=== PATIENT | female | born 1965 | race Caucasian/White ===

== ENCOUNTER 2021-04-06 17:44 | Emergency (ER) | payer OTHER, SELFPAY ==
--- NOTE | ~2021-04-06 | CT_ITS ---
EXAMINATION: CT ABDOMEN AND PELVIS WITH CONTRAST CLINICAL INFORMATION: Left lower quadrant abdominal pain. Tenderness to palpation. COMPARISON: None TECHNIQUE: Multidetector volumetric images were obtained from the superior aspect of the liver through the pubic symphysis following administration 85 mL of Omnipaque 350 intravenous contrast. Sagittal and coronal reformatted images were obtained on the technologist's workstation. Oral contrast: No This CT examination was performed using dose optimization techniques as appropriate, variously including the following: *Automated exposure control *Adjustment of mA and/or kV according to patient size (this includes techniques or standardized protocols for targeted exams where dose is matched to indication/reason for exam; i.e. extremities or head) *Use of iterative reconstruction technique DLP: 770 mGy-cm FINDINGS: LUNG BASES: The visualized lung bases are unremarkable. LIVER, GALLBLADDER, AND BILIARY TREE: The liver is normal in size, shape, and attenuation. No focal hepatic lesion or biliary ductal dilatation is present. The gallbladder is unremarkable with no evidence of radiopaque gallstones, gallbladder wall thickening, or obvious pericholecystic inflammatory changes. PANCREAS: Unremarkable. SPLEEN: Unremarkable. ADRENAL GLANDS: Unremarkable. KIDNEYS AND URETERS: The kidneys are normal in size, shape, and attenuation. No hydronephrosis, hydroureter, or calculi seen. No perinephric stranding. BLADDER: Unremarkable. GASTROINTESTINAL TRACT: The small and large bowel are unremarkable. The appendix is unremarkable. ABDOMINAL WALL: No significant hernia is appreciated. LYMPH NODES: Normal. VASCULAR: Unremarkable. PELVIC VISCERA: Unremarkable. OSSEOUS STRUCTURES: There is multilevel moderate degenerative spondylosis of lumbar spine. CT/CT abdomen pelvis w con IMPRESSION: No acute abnormality CT scan abdomen pelvis.
[2021-04-06 18:36] VITALS: BP 157/87; PULSE 73; RESP 16; TEMP 36.2; O2SAT 96; BMI 33.0
[2021-04-06 19:26] LABS: Glucose Urine UA NEG (NEG); Leukocyte Esterase Urine NEG (NEG); Nitrite Urine NEG (NEG); Urine Blood TRACE (NEG); Urine Ketones NEG (NEG); Urine Protein NEG (NEG-TRACE)
[2021-04-06 19:28] LABS: Appearance Urine CLEAR; Color Urine YELLOW
[2021-04-06 19:35] LABS: RBC Urine 0-2 /HPF (0); WBC Urine 0 /HPF (0-4)
[2021-04-06 19:59] VITALS: BP 164/87; PULSE 64; RESP 16; TEMP 36.6; O2SAT 99
[2021-04-06 20:02] LABS: MANUAL DIFF FLAG NO
[2021-04-06 20:03] LABS: Basophils Absolute Auto 0.1 X10*3/uL (0.0-0.2); Basophils Percent Auto 1.1 % (0-2); Eosinophils Absolute Auto 0.2 X10*3/uL (0.0-0.4); Eosinophils Percent Auto 2.8 % (0-4); Hematocrit 44.9 % (37-47); Hemoglobin 15.1 g/dl (12.0-16.0); Imm Gran Abs Auto 0.01 X10*3/uL (0.00-0.03); Imm Gran Pct Auto 0.1 % (0.0-0.4); Lymphocytes Absolute Auto 2.9 X10*3/uL (1.2-4.9); Lymphocytes Percent Auto 40.6 % (20-40); Mean Corpuscular HGB Conc 33.6 g/dl (31.0-35.0); Mean Corpuscular Hemoglobin 30.3 pg (27.0-33.0); Mean Platelet Volume 10.8 fL (9.4-12.3); Monocytes Absolute Auto 0.7 X10*3/uL (0.1-1.2); Monocytes Percent Auto 9.3 % (2-11); Neutrophils Absolute Auto 3.3 X10*3/uL (2.0-8.3); Neutrophils Percent Auto 46.1 % (45-73); Platelet Count 218 X10*3/uL (160-400); Red Blood Count 4.99 X10*6/uL (4.20-5.50); Red Cell Distribution Width 12.9 % (11.0-16.0); White Blood Count 7.2 X10*3/uL (4.8-10.8)
[2021-04-06] MEDS: Ketorolac Tromethamine 15 MG/ML VIAL IVPUSH (20:12)
[2021-04-06] MEDS: 0.9 % Sodium Chloride 1,000 ML 999 ML IVCONT (20:12)
[2021-04-06 20:23] LABS: Anion Gap 13 (12-20); Blood Urea Nitrogen 11 mg/dL (9-16); Calcium 9.1 mg/dL (8.4-10.2); Carbon Dioxide 24 mmol/L (22-29); Chloride 107 mmol/L (96-108); Creatinine Clr Calc Pharmacy 113.6; Estimated Glomerular Filt Rate > 60; Glucose Random 84 mg/dL (60-115); Potassium 3.5 mmol/L (3.3-5.1); Sodium 140 mmol/L (135-145)
--- NOTE | 2021-04-06 20:44 | ED.ABDPAIN ---
HPI - Abdominal Pain General Chief Complaint: Abdominal Pain Stated Complaint: dysuria Time Seen by Provider: 04/06/21 19:41 Source: patient Mode of arrival: ambulatory History of Present Illness HPI narrative: 56-year-old female with a past medical history of GERD, hypertension, IBS, reasoning to the ED complaining of constant lower abdomen/LLQ abdominal pain since last night. Admits symptoms feel similar to prior UTI. Denies fever, chills, nausea/vomiting, diarrhea/constipation, dysuria/hematuria, vaginal bleeding/discharge MD elicited complaint: abdominal pain Related Data Previous Rx's Medication Instructions Recorded dicyclomine 20 mg PO QID PRN #14 tab 04/06/21 Allergies Allergy/AdvReac Type Severity Reaction Status Date / Time azithromycin [AZITHROMYCIN] Allergy Unknown HIVES Unverified 08/11/20 14:55 codeine [CODEINE] Allergy Unknown HIVES Unverified 08/11/20 14:55 Penicillins [PENICILLINS] Allergy Unknown HIVES Unverified 08/11/20 14:55 Sulfa (Sulfonamide Allergy Unknown HIVES Unverified 08/11/20 14:55 Antibiotics) [SULFA (SULFONAMIDE ANTIBIOTICS)] sulfamethoxazole Allergy Unknown HIVES Unverified 08/11/20 14:55 [From ] tetracycline [TETRACYCLINE] Allergy Unknown HIVES Unverified 08/11/20 14:55 trimethoprim [From JULRA] Allergy Unknown HIVES Unverified 08/11/20 14:55 Review of Systems Review of Systems Constitutional: No Fever, No Chills Cardiovascular: No Chest Pain, No SOB Respiratory: No Cough, No Dyspnea Gastrointestinal: No Nausea, No Vomiting, No Diarrhea, No Constipation, + Abdominal pain Genitourinary: No irregular bleeding, No Dysuria, No Urinary Frequency, No Hematuria, No Flank Pain, No Urinary Flow Changes Musculoskeletal: No joint pain, No Myalgias Skin: No Skin Lesions, No rash Neuro: No Weakness, No Numbness Yes all other systems are reviewed and are negative Physical Exam Vital Signs: Vital Signs: Last Vital Signs Temp 97.9 F 04/06/21 19:59 Pulse 64 04/06/21 19:59 Resp 16 04/06/21 19:59 BP 164/87 H 04/06/21 19:59 Pulse Ox 99 04/06/21 19:59 Body Mass Index 33.0 Const: General: cooperative, healthy appearing and no acute distress Orientation/consciousness: patient oriented x3 Limitations: no limitations HENMT: Head: Yes normal to inspection Ears: hearing grossly normal bilaterally General nose exam: Normal external nose present Face and sinus: Yes normal facial exam Eyes: General: appearance normal, both eyes and all related structures EOM: EOMs intact bilaterally Neck: Neck: Yes normal visual inspection and Yes no meningeal signs Resp: Effort & Inspection: normal respiratory effort Cardio: Rate: regular rate GI: Inspection: Yes normal to inspection Palpation (GI): Soft to palpation, Tenderness to palpation present (GI) in the epigastrum, in the LLQ, in the LUQ and in the RUQ, no guarding and not rigid : General: Yes no CVA tenderness Back/Spine/Pelvis: Back: no CVA tenderness Skin: Rashes: no rashes Wounds: no wounds Neuro: General: patient oriented x3, tone normal and no meningeal signs Extrem: General: Yes normal to inspection and Yes no pedal edema Course Course Course Narrative: --no leukocytosis --labs otherwise unremarkable, UA negative CT abdomen pelvis w con IMPRESSION: No acute abnormality CT scan abdomen pelvis. >> results discussed with patient. So reports continued pain, on re-evaluation abdomen still with mild tenderness in LLQ. Offered patient a pelvic ultrasound for further evaluation, with shared decision making she would like to watch and wait, and follow-up with PCP tomorrow/this week and obtain outpatient ultrasound. Worrisome signs and symptoms and strict return precautions discussed, she verbalized understanding feel safe for discharge home MDM - Abdominal Pain MDM Narrative Medical decision making narrative: 56-year-old female with a past medical history of GERD, hypertension, IBS, reasoning to the ED complaining of constant lower abdomen/LLQ abdominal pain since last night. On exam VSS, NAD/well-appearing, abdomen soft with upper/LLQ ttp, no rebound or guarding, no CVAT. Concern for diverticulitis vs UTI vs cholecystitis/lithiasis vs pancreatitis. Lower concern for renal stone/pyelo. Lower concern for appendicitis Plan: Labs, UA, IVF/symptomatic treatment, CTAP, reassess Medical Records Attestation: I reviewed the patient's medical records. Lab Data Attestation: I reviewed the patient's lab results. Result diagrams: 04/06/21 19:56 04/06/21 19:56 Labs: Lab Results 04/06/21 04/06/21 04/06/21 Range/Units 18:50 19:56 19:56 WBC 7.2 (4.8-10.8) X10*3/uL RBC 4.99 (4.20-5.50) X10*6/uL Hgb 15.1 (12.0-16.0) g/dl Hct 44.9 (37-47) % MCV 90.0 (80-98) fL MCH 30.3 (27.0-33.0) pg MCHC 33.6 (31.0-35.0) g/dl RDW 12.9 (11.0-16.0) % Plt Count 218 (160-400) X10*3/uL MPV 10.8 (9.4-12.3) fL Immature Gran % (Auto) 0.1 (0.0-0.4) % Neut % (Auto) 46.1 (45-73) % Lymph % (Auto) 40.6 H (20-40) % [place] % (Auto) 9.3 (2-11) % Eos % (Auto) 2.8 (0-4) % Baso % (Auto) 1.1 (0-2) % Lymph # (Auto) 2.9 (1.2-4.9) X10*3/uL [place] # (Auto) 0.7 (0.1-1.2) X10*3/uL Eos # (Auto) 0.2 (0.0-0.4) X10*3/uL Baso # (Auto) 0.1 (0.0-0.2) X10*3/uL Abs Immat Gran (auto) 0.01 (0.00-0.03) X10*3/uL Absolute Neuts (auto) 3.3 (2.0-8.3) X10*3/uL Absolute Nucleated RBC 0.000 (0.0-0.012) X10*3/uL Nucleated RBC % (auto) 0.0 (0.0-0.2) /100WBC Hold Blue Top SEE NOTE Sodium (135-145) mmol/L Potassium (3.3-5.1) mmol/L Chloride (96-108) mmol/L Carbon Dioxide (22-29) mmol/L Anion Gap (12-20) BUN (9-16) mg/dL Creatinine (0.5-1.4) mg/dL Estim Creat Clear Calc Estimated GFR Random Glucose (60-115) mg/dL Calcium (8.4-10.2) mg/dL Magnesium (1.6-2.6) mg/dL Total Bilirubin (0.0-1.0) mg/dL Direct Bilirubin (0.0-0.5) mg/dL AST (5-31) U/L ALT (0-31) U/L Alkaline Phosphatase (39-117) U/L Total Protein (6.5-8.0) g/dL Albumin (3.5-5.0) g/dL Lipase (8-78) U/L Urine Color YELLOW Urine Appearance CLEAR Urine pH 7.0 (5.0-8.0) Ur Specific [place] 1.010 (1.005-1.025) Urine Protein NEG (NEG-TRACE) MG/DL Urine Glucose (UA) NEG (NEG) MG/DL Urine Ketones NEG (NEG) MG/DL Urine Blood TRACE (NEG) Urine Nitrite NEG (NEG) Ur Leukocyte Esterase NEG (NEG) Urine RBC 0-2 (0) /HPF Urine WBC 0 (0-4) /HPF Ur Squamous Epith Cells NONE /LPF Urine Bacteria NONE /LPF 04/06/21 Range/Units 19:56 WBC (4.8-10.8) X10*3/uL RBC (4.20-5.50) X10*6/uL Hgb (12.0-16.0) g/dl Hct (37-47) % MCV (80-98) fL MCH (27.0-33.0) pg MCHC (31.0-35.0) g/dl RDW (11.0-16.0) % Plt Count (160-400) X10*3/uL MPV (9.4-12.3) fL Immature Gran % (Auto) (0.0-0.4) % Neut % (Auto) (45-73) % Lymph % (Auto) (20-40) % [place] % (Auto) (2-11) % Eos % (Auto) (0-4) % Baso % (Auto) (0-2) % Lymph # (Auto) (1.2-4.9) X10*3/uL [place] # (Auto) (0.1-1.2) X10*3/uL Eos # (Auto) (0.0-0.4) X10*3/uL Baso # (Auto) (0.0-0.2) X10*3/uL Abs Immat Gran (auto) (0.00-0.03) X10*3/uL Absolute Neuts (auto) (2.0-8.3) X10*3/uL Absolute Nucleated RBC (0.0-0.012) X10*3/uL Nucleated RBC % (auto) (0.0-0.2) /100WBC Hold Blue Top Sodium 140 (135-145) mmol/L Potassium 3.5 (3.3-5.1) mmol/L Chloride 107 (96-108) mmol/L Carbon Dioxide 24 (22-29) mmol/L Anion Gap 13 (12-20) BUN 11 (9-16) mg/dL Creatinine 0.71 (0.5-1.4) mg/dL Estim Creat Clear Calc 113.6 Estimated GFR > 60 Random Glucose 84 (60-115) mg/dL Calcium 9.1 (8.4-10.2) mg/dL Magnesium 2.2 (1.6-2.6) mg/dL Total Bilirubin 0.6 (0.0-1.0) mg/dL Direct Bilirubin 0.2 (0.0-0.5) mg/dL AST 17 (5-31) U/L ALT 18 (0-31) U/L Alkaline Phosphatase 71 (39-117) U/L Total Protein 6.6 (6.5-8.0) g/dL Albumin 4.3 (3.5-5.0) g/dL Lipase 30 (8-78) U/L Urine Color Urine Appearance Urine pH (5.0-8.0) Ur Specific [place] (1.005-1.025) Urine Protein (NEG-TRACE) MG/DL Urine Glucose (UA) (NEG) MG/DL Urine Ketones (NEG) MG/DL Urine Blood (NEG) Urine Nitrite (NEG) Ur Leukocyte Esterase (NEG) Urine RBC (0) /HPF Urine WBC (0-4) /HPF Ur Squamous Epith Cells /LPF Urine Bacteria /LPF Discharge Plan Discharge Clinical Impression: Abdominal pain Qualifiers: Abdominal location: left lower quadrant Qualified Code(s): R10.32 - Left lower quadrant pain Patient Disposition: Home, Self-Care Instructions: Abdominal Pain (ED) Additional Instructions: Your blood work and CT scan were reassuring today in the ED It is important for you to have close follow-up with her primary care doctor, as well as GI as needed Bentyl as an antispasmodic medication, take for abdominal pain In addition take Tylenol Motrin Make sure staying hydrated at home If symptoms persist or worsen, pain becomes unbearable, fever or chills, nausea or vomiting please return to the ED Prescriptions: New dicyclomine 20 mg tablet 20 mg PO QID PRN (Reason: pain, mild) Qty: 14 RF: 0 Referrals: Coty Brewer MD [Primary Care Provider] - 2 days Kris Cartwright [Physician] - 1 week PMF Past Medical History Attestation statement: The following information was validated with the patient. Medical History (Updated 04/06/21 @ 21:49 by BOBBY Pagan) GERD (gastroesophageal reflux disease) Hypertension IBS (irritable bowel syndrome) Social History Social History Alcohol intake: never Smoking Status: Current every day smoker Use of substances other than those prescribed or required for medical reasons: No Advance Directives: No Advance Directives Information Provided: No Patient : No
[2021-04-06] MEDS: iohexoL 350 MG/ML 100 ML INFUS..BTL IV (20:45)
[2021-04-06 21:11] LABS: Alanine Aminotransferase 18 U/L (0-31); Albumin Level 4.3 g/dL (3.5-5.0); Alkaline Phosphatase 71 U/L (39-117); Aspartate Amino Transferase 17 U/L (5-31); Bilirubin Direct 0.2 mg/dL (0.0-0.5); Bilirubin Total 0.6 mg/dL (0.0-1.0); Lipase 30 U/L (8-78); Magnesium 2.2 mg/dL (1.6-2.6); Total Protein 6.6 g/dL (6.5-8.0)
== END 2021-04-06 22:03 | disposition home or self-care (01) ==
PROVIDERS: Emergency Provider Emergency Medicine; PCP Internal Medicine
DX: R10.32 Left lower quadrant pain (principal); I10 Essential (primary) hypertension
CPT/HCPCS: 36415; 74177; 80048; 80076; 81001; 83690; 83735; 85025; 96361; 96374; 99284; J1885; Q9967

== ENCOUNTER 2023-04-02 21:38 | Outpatient (REF) | payer OTHER, SELFPAY | END 2023-04-02 21:39 | disposition home or self-care (01) | LOC: HO.HOSX 21:38 | PROVIDERS: Visit Provider Physician Assistant | DX: Z13.89 Encounter for screening for other disorder (principal) ==

== ENCOUNTER 2023-04-03 06:58 | Outpatient (REF) | payer OTHER, SELFPAY ==
--- NOTE | ~2023-04-03 | XR_ITS ---
Procedure: Right knee. Technique: Right knee: weightbearing the bilateral, sunrise, lateral, COMPARISON: None FINDINGS: There is no evidence of fracture or dislocation. There is enthesopathy at the patella otherwise no evidence of osteoarthritis. Soft tissues are normal. XR/XR knee standing BI IMPRESSION: Enthesopathy of the patella.
--- NOTE | ~2023-04-03 | XR_ITS ---
Procedure: Right knee. Technique: Right knee: weightbearing the bilateral, sunrise, lateral, COMPARISON: None FINDINGS: There is no evidence of fracture or dislocation. There is enthesopathy at the patella otherwise no evidence of osteoarthritis. Soft tissues are normal. XR/XR knee RT 2V IMPRESSION: Enthesopathy of the patella.
== END 2023-04-03 06:59 | disposition home or self-care (01) ==
LOC: HO.HOSX 06:58
PROVIDERS: Visit Provider Physician Assistant
DX: S83.411A Sprain of medial collateral ligament of right knee, initial encounter (principal); S83.511A Sprain of anterior cruciate ligament of right knee, initial encounter
CPT/HCPCS: 73560; 73565; 99202

== ENCOUNTER → 2023-04-08 09:49 | Outpatient (BNVA) | payer OTHER, SELFPAY | PROVIDERS: PCP Internal Medicine; Visit Provider Orthopaedic Surgery | DX: S83.511A Sprain of anterior cruciate ligament of right knee, initial encounter (principal); S83.411A Sprain of medial collateral ligament of right knee, initial encounter; M25.669 Stiffness of unspecified knee, not elsewhere classified | CPT/HCPCS: 99212 ==

== ENCOUNTER → 2023-05-09 10:05 | Outpatient (BNVA) | payer OTHER, SELFPAY | PROVIDERS: PCP Internal Medicine; Visit Provider Orthopaedic Surgery | DX: S83.511D Sprain of anterior cruciate ligament of right knee, subsequent encounter (principal); S83.411D Sprain of medial collateral ligament of right knee, subsequent encounter; M25.669 Stiffness of unspecified knee, not elsewhere classified | CPT/HCPCS: 99212 ==

== ENCOUNTER → 2023-05-23 09:41 | Outpatient (BNVA) | payer OTHER, SELFPAY | PROVIDERS: PCP Internal Medicine; Visit Provider Orthopaedic Surgery | DX: S83.511D Sprain of anterior cruciate ligament of right knee, subsequent encounter (principal); S80.11XD Contusion of right lower leg, subsequent encounter; S83.411D Sprain of medial collateral ligament of right knee, subsequent encounter; M25.669 Stiffness of unspecified knee, not elsewhere classified | CPT/HCPCS: 99212 ==

== ENCOUNTER 2023-10-09 09:56 | Outpatient (AMB) | payer OTHER, SELFPAY ==
--- NOTE | 2023-10-09 09:58 | AM.OFFWIN_ITS ---
Intake Vital Signs 10/09/23 10:04 Height 5 ft 9 in Weight 100.698 kg BMI 32.8 BP 146/90 H Blood Pressure Location Rt brachial Position Sitting Pulse 97 Pulse Source Pulse Oximeter Temp 97.8 F Temp Source Temporal Artery Scan Pulse Oximetry (%) 100 Oxygen Delivery Method Room Air Intake Visit Reasons: EP upper resp/ear infection masked [phone] Intake Note: chest congestion and left ear inflamed in the canal coughing and wheezing this started Saturday Allergies azithromycin [AZITHROMYCIN] Allergy (Unknown, Verified 05/09/23 10:10) HIVES codeine [CODEINE] Allergy (Unknown, Verified 05/09/23 10:10) HIVES Penicillins [PENICILLINS] Allergy (Unknown, Verified 05/09/23 10:10) HIVES Sulfa (Sulfonamide Antibiotics) [SULFA (SULFONAMIDE ANTIBIOTICS)] Allergy (Unknown, Verified 05/09/23 10:10) HIVES sulfamethoxazole [From SEPTRA] Allergy (Unknown, Verified 05/09/23 10:10) HIVES tetracycline [TETRACYCLINE] Allergy (Unknown, Verified 05/09/23 10:10) HIVES trimethoprim [From SEPTRA] Allergy (Unknown, Verified 05/09/23 10:10) HIVES HPI HPI Comments History of Present Illness Details 1029 This is a 58-year-old female presenting to the clinic for sick visit complaining of upper respiratory infection with cough, fatigue, malaise going on for the past week or so, worsening. Patient also complaining of left ear discomfort this is also been going on for about a week, patient reports typically her upper respiratory infections turn into an ear infection. She reports that she just does not feel well. She is requesting COVID testing today. She denies chest pain, shortness of breath, nausea, vomiting, abdominal pain, headache, vision changes, dizziness and weakness. Physical exam with discomfort with palpation of left pinna, and tragus, erythematous ear canal to the left. Also noted to have a large left-sided ear effusion with overlying erythema and bulging. No mastoid tenderness. Normal ri ght ear/canal. Lungs clear. RRR. Concerns for otitis media with effusion to left ear with otitis externa. Also concern for possible bronchitis. Plan is to send Antoinette ( due to allergies states she tollerates this one well and is not allergic to this) to the pharmacy as well as Ciprodex drops and prednisone. Patient vocalizes concerns for financial struggles at this time, I spoke to Community navigator here in the office Yocasta, she will look into patient's insurance and will provide her with a good Rx card to see if patient can get her prescriptions. I did explain to her that it they were too expensive she could have the pharmacist call me and we would adjust the medication. FORMERLY [facility], [facility] Medical History Hypertension GERD (gastroesophageal reflux disease) IBS (irritable bowel syndrome) Social History Alcohol intake: never Review of Systems Const Details: Constitutional : No Weight loss, No Fever, No Chills, No Fatigue, No Malaise ENT/Mouth : No sore throat, No Rhinorrhea, + ear pain Eyes: No Eye Pain, No Swelling, No Redness Cardiovascular : No Chest Pain, No SOB, No Dyspnea on Exertion, No Orthopnea, No Edema, No Palpitations Respiratory : + Cough, No Sputum, No Wheezing Gastrointestinal : No Nausea, No Vomiting, No Diarrhea, No Constipation, No abdominal Pain, No Hematochezia, No Melena Genitourinary : No Dysuria, No Urinary Frequency, No Hematuria, Musculoskeletal : No joint pain, No Myalgias, No Joint Swelling Skin : No Skin Lesions, No rash Neuro : No Weakness, No Numbness, No Dizziness, No Headache Psych : No Anxiety/Panic, No Depression All other systems reviewed and are negative All systems reviewed & are unremarkable except as noted in HPI and below Physical Exam Vital Signs: Last Vital Signs Temp 97.8 F 10/09/23 10:04 Pulse 97 10/09/23 10:04 BP 146/90 H 10/09/23 10:04 Pulse Ox 100 10/09/23 10:04 Oxygen Delivery Method Room Air 10/09/23 10:04 BMI result Body Mass Index 32.8 Vital signs stable Appearance: Alert.? Oriented X3.? No acute distress.? Head: Normocephalic, atraumatic, no step-offs or deformities Eyes: Pupils equal, round and reactive to light.? ENT: Pharynx normal.?discomfort with palpation of left pinna, and tragus, erythematous ear canal to the left. Also noted to have a large left-sided ear effusion with overlying erythema and bulging. No mastoid tenderness. Normal right ear/canal. Neck: Normal inspection.? Neck supple.? CVS: Normal heart rate and rhythm.? Pulses normal.? Respiratory: No respiratory distress.? Breath sounds normal.? Abdomen: Soft and nontender.? Skin: Skin warm and dry.? Normal skin color.? Normal skin turgor.? Extremities: No lower extremity edema.? No calf ttp. 5/5 strength to bilateral upper and lower extremities Back: No midline tenderness, no C-spine tenderness, full range of motion, no CVA tenderness bilaterally Neuro: Oriented X 3.? No motor deficit.? No sensory deficit. CN 2-12 intact Assessment & Plan Assessment & Plan (1) Otitis media: Code(s): H66.90 - Otitis media, unspecified, unspecified ear (2) Otitis externa: Code(s): H60.90 - Unspecified otitis externa, unspecified ear (3) Acute effusion of left ear: Code(s): H65.192 - Other acute nonsuppurative otitis media, left ear (4) Bronchitis: Code(s): J40 - Bronchitis, not specified as acute or chronic Plan Take your medications as prescribed. If you were prescribed antibiotics today, it is important that you take your medication to their entirety, do not skip any doses, do not finish them early. Follow-up with your primary care provider this week. Return to the emergency department with new or worsening symptoms. Such as fevers, chills, chest pain, shortness of breath, nausea, vomiting, dizziness, headache, vision changes, lethargy In case of emergency call 911 Coding Level of Care Code Est Pt Level 3 (30020) Diagnoses Otitis media H66.90 Otitis externa H60.90 Acute effusion of left ear H65.192 Bronchitis J40
[2023-10-09 10:04] VITALS: BP 146/90; PULSE 97; TEMP 36.6; O2SAT 100; BMI 32.8
== END 2023-10-09 10:47 | disposition home or self-care (01) ==
PROVIDERS: PCP Internal Medicine; Visit Provider Physician Assistant
DX: H66.92 Otitis media, unspecified, left ear (principal); H60.92 Unspecified otitis externa, left ear; H65.192 Other acute nonsuppurative otitis media, left ear; J40 Bronchitis, not specified as acute or chronic
CPT/HCPCS: 99213

== ENCOUNTER 2023-10-09 10:46 | Outpatient (REF) | payer OTHER, SELFPAY ==
[2023-10-09 11:30] LABS: Binax Internal Control QC Valid; Binax Now Covid-19 Ag Negative (Negative); Binax Performed by: HO.BONILM
== END 2023-10-09 10:47 | disposition home or self-care (01) ==
LOC: HO.HMGCLDS 10:46
PROVIDERS: PCP Internal Medicine; Visit Provider Internal Medicine
DX: Z11.52 Encounter for screening for COVID-19 (principal); J06.9 Acute upper respiratory infection, unspecified
CPT/HCPCS: 87811; C9803